=== PATIENT | female | born 2000 | race Caucasian/White ===

== ENCOUNTER 2020-11-30 20:42 | Emergency (ER) | payer MEDICAID ==
[~2020-11-30] VITALS: Ht 160 cm; Wt 81.6 kg
[2020-11-30 21:37] VITALS: BP_SYST 139
--- NOTE | 2020-11-30 23:10 | NUR ---
Seen and examined by Dr. Hawley, ER attending
--- NOTE | 2020-12-01 | NUR ---
PATIENT AAOX4 AND AMBULATOR FROM HOME AND fell in the front yard at 8pm and hit her right knee on the ground. PER PATIENT STATED HAVING RIGHT KNEE PAIN AND HEARD A "POP" SOUND. VSS. CURRENTLY STATING 8/10 ON THE PAIN SCALE.
--- NOTE | 2020-12-01 01:30 | NUR ---
Urine pregnacy negative. Patient transported to radiology via wheelchair, accompanied by industrial maintenance technician.
[2020-12-01] MEDS ORDERED: IBUPROFEN 800 MG TABLET PO ONE (02:30)
[2020-12-01] MEDS ORDERED: IBUP-1970 PO (02:51)
[2020-12-01 03:03] VITALS: BP_SYST 139
--- NOTE | 2020-12-01 03:04 | NUR ---
Patient given written and verbal discharge instructions and verbalizes understanding. DR. MACIE KENNEDY MD discussed with patient the results and treatment provided. Patient in stable condition. ID arm band removed. Rx of IBUPROFEN given. Patient educated on pain management and to follow up with PMD. Pain Scale 0/10. Opportunity for questions provided and answered. Medication side effect fact sheet provided.
== END 2020-12-01 03:13 | disposition home or self-care (01) ==
LOC: SED 20:42
DX: S89.91XA Unspecified injury of right lower leg, initial encounter (principal); M25.461 Effusion, right knee; Z79.899 Other long term (current) drug therapy; W01.0XXA Fall on same level from slipping, tripping and stumbling without subsequent striking against object, initial encounter; Y93.89 Activity, other specified; Y92.89 Other specified places as the place of occurrence of the external cause; Y99.8 Other external cause status
CPT/HCPCS: 73564; 73700-TC; 76376; 81025; 99284